=== PATIENT | male | born 1975 | race American Indian/Alaskan Native ===

== ENCOUNTER 2019-05-18 10:41 | Emergency (ER) | payer SELFPAY ==
[2019-05-18 11:02] VITALS: BP 152/91
--- NOTE | 2019-05-18 15:06 | Emergency Department Report ---
Chief Complaint: Upper Respiratory Infection Stated Complaint: COLD/CP Time Seen by Provider: 05/18/19 14:47 - HPI History of Present Illness: Is is a 44-year-old -[place] male who presents to the emergency room with flulike symptoms. Patient reports fever, chills, cough, and body aches for 3 days. Patient states he's taken everything [id number] for cold and flu with minimal improvement of symptoms. Patient states he stayed at home yesterday and attempted to go to work today with worsening symptoms. Patient states he works in construction. He denies chest pain, shortness of breath, wheezing, vomiting, diarrhea, or palpitations. - ROS Review of Systems: ROS: Stated complaint: Cough, chills, and body aches Other details as noted in HPI Constitutional: chills, fever ENT: congestion. denies: ear pain, throat pain Respiratory: cough. denies: shortness of breath, wheezing Cardiovascular: denies: palpitations, chest pain. Gastrointestinal: denies: abdominal pain, nausea, diarrhea Musculoskeletal: denies: back pain, joint swelling, arthralgia Skin: denies: rash, lesions Neurological: denies: headache, weakness, paresthesias Psychiatric: denies: anxiety, depression - Exam Vital Signs: Vital Signs 05/18/19 10:55 Temperature 97.7 F Pulse Rate 89 Respiratory 16 Rate Blood Pressure 152/91 O2 Sat by Pulse 96 Oximetry Physical Exam: General: Vital signs noted. No distress. Alert and acting appropriately. Obese. HEENT: Yes Moist Mucous Membranes, Yes Rhinorrhea (congestion), No Pharyngeal Erythema (uvula midline), No Pharyngeal Exudates, No Conjuctival Injection, No Frontal Tenderness, No Maxillary Tenderness Ear: Neither TM Bulge, Neither TM Erythema, Neither EAC Pain, Neither EAC Discharge Neck: Yes Supple, No Adenopathy Lungs: Yes Good Air Exchange, No Wheezes, No Ronchi, No Stridor, No Cough, No Labored Respirations, No Retractions, No Use of Accessory Muscles, No Other Abnormal Lung Sounds Heart: Yes Regular, No Murmur Abdomen: Yes Normal Bowel Sounds, No Tenderness, No Peritoneal Signs Skin: No Rash, No Edema Neurologic: Alert and oriented, no deficits. MSE screening note: Focused history and physical exam performed. Due to findings the following was ordered: ED Medical Decision Making - Medical Decision Making 44 y.o. male that presents with upper respiratory symptoms. Patient examined by me and stable. VSS and patient in no acute distress. No history of immunocompromise. Nontoxic appearance. No trismus, no airway compromise. Able to tolerate by mouth. Given History and Exam I have low suspicion for cause of DYNAMOMETER TESTER, Epiglottitis, Bacterial Tracheitis, acute HIV, or Strep throat. This is a nonemergent complaint. Instructed to continue taking [id number] cold and flu medication. Increase fluid intake. Follow up with a primary care doctor urgent care. Discharge home stable. ED Disposition for MSE Disposition: MED SCREENING EXAM-LEFT Condition: Stable Instructions: Cold Symptoms (ED), Upper Respiratory Infection (ED) Additional Instructions: Increase fluid intake and rest. Wash hands frequently. Continue taking Tylenol or ibuprofen to control fever. F/U with Primary Care Provider. Return to ER if fever, shortness of breath, or difficulty breathing after 48 hours of supportive care. Referrals: [facility] [Outside] - 3-5 Days [facility] [Outside] - 3-5 Days [facility] [Outside] - 3-5 Days Forms: Work/School Release Form(ED) Time of Disposition: 15:21
== END 2019-05-18 15:34 | disposition left against medical advice (07) ==
LOC: ED 10:41
DX: R50.9 Fever, unspecified (principal); R05 Cough
CPT/HCPCS: 99281